=== PATIENT | male | born 1995 | race Caucasian/White ===

== ENCOUNTER 2020-03-03 12:08 | Emergency (ER) | payer OTHER, MEDICAID, SELFPAY ==
[2020-03-03 12:26] VITALS: BP 124/77; PULSE 60; RESP 16; TEMP 36.4; O2SAT 99; BMI 25.0
--- NOTE | 2020-03-03 12:32 | DI.RAD.S_ITS ---
PROCEDURE: XR FOOT RT MIN 3V INDICATIONS: swelling TECHNIQUE: 3 views of the foot were acquired. COMPARISON: None. FINDINGS: Bones: No fractures or dislocations. No suspicious bony lesions. Bipartite medial and lateral sesamoid bones can be seen. Soft tissues: Mild generalized soft tissue swelling is seen. IMPRESSION: Soft tissue swelling is seen, without an acute abnormality seen by plain film. If there is point tenderness (or other clinical suspicion for a fracture not seen on these images) then a dedicated CT or a short-term followup plain film series could be considered for further evaluation, as clinically appropriate. Dictated by: Lexx Mccormick M.D. on 03/03/2020 at 12:06 Approved by: Lexx Mccormick M.D. on 03/03/2020 at 12:07
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
== END 2020-03-03 14:02 | disposition home or self-care (01) ==
PROVIDERS: Emergency Provider Nurse Practitioner Family
DX: S90.111A Contusion of right great toe without damage to nail, initial encounter (principal); W22.8XXA Striking against or struck by other objects, initial encounter
CPT/HCPCS: 73630; 99282; 99283